=== PATIENT | male | born 1970 | race Caucasian/White ===

== ENCOUNTER 2016-10-02 04:33 | Emergency (ER) | payer OTHER ==
[~2016-10-02] VITALS: Ht 172.7 cm; Wt 78.4 kg
[2016-10-02] MEDS ORDERED: SODIUM CHLORIDE 0.9% 1,000 ML IV ONE (05:07)
[2016-10-02] MEDS ORDERED: ONDANSETRON 2MG/ML, 2ML ONE (05:13)
[2016-10-02] MEDS ORDERED: HYDROmorphone 1 MG/ML, 1ML ONE ×2 (05:13→07:40)
[2016-10-02] MEDS ORDERED: ONDANSETRON 2MG/ML, 2ML IVPush ONE (05:30)
[2016-10-02] MEDS ORDERED: SODIUM CHLORIDE 0.9% 1,000ML IVBOLUS ONE ×2 (05:30→07:30)
[2016-10-02] MEDS ORDERED: SODIUM CHLORIDE FLUSH 10ML SYR IVF ONE (05:30)
[2016-10-02] MEDS: HYDROmorphone 1 MG/ML, 1ML IVPush PRN ×2 (05:35→07:54)
[2016-10-02 06:11] LABS: ASPARTATE AMINO TRANSFERASE 79 U/L (15-37); BLOOD UREA NITROGEN 22 mg/dL (7-18)
[2016-10-02 06:46] LABS: HEMATOCRIT 46.6 % (39.2-51.8); HEMOGLOBIN 15.7 g/dL (13.7-18.0); WHITE BLOOD COUNT 6.6 x10^3/uL (3.4-10)
[2016-10-02 09:25] VITALS: BP 135/88
== END 2016-10-02 09:27 | disposition home or self-care (01) ==
LOC: ED 05:14
DX: K52.89 Other specified noninfective gastroenteritis and colitis (principal)
CPT/HCPCS: 36415; 74022; 76700; 80053; 81003; 83605; 83690; 85025; 96361; 96374; 96375; 96376; 99285; J1170; J2405; J7030